=== PATIENT | male | born 1990 | race Caucasian/White ===

== ENCOUNTER 2024-03-15 14:40 | Outpatient (CLI) | payer OTHER, SELFPAY ==
[2024-03-18 17:40] LABS: HSV 1 Subtype by PCR Not Detected; HSV 2 Subtype by PCR Not Detected; Herpes Simplex Subtype Source Vesicle
== END 2024-03-15 14:41 | disposition home or self-care (01) ==
LOC: NFLDUCREF 14:40
DX: K13.79 Other lesions of oral mucosa (principal); K12.1 Other forms of stomatitis
CPT/HCPCS: 87529